=== PATIENT | male | born 1985 | race Asian ===

== ENCOUNTER 2021-10-30 19:18 | Emergency (ER) | payer OTHER ==
[~2021-10-30] VITALS: Ht 172.7 cm; Wt 127.3 kg
[2021-10-30 22:05] VITALS: BP 109/63
[2021-10-30] MEDS ORDERED: PERTUSS(ACELL),DIPH,TET VAC/PF 0.5 ML SYRINGE IM. ONE (22:15)
== END 2021-10-30 22:36 | disposition home or self-care (01) ==
LOC: EMS 20:26
DX: S30.871A Other superficial bite of abdominal wall, initial encounter (principal); S71.152A Open bite, left thigh, initial encounter; F12.90 Cannabis use, unspecified, uncomplicated; W54.0XXA Bitten by dog, initial encounter; Y93.89 Activity, other specified; Y92.89 Other specified places as the place of occurrence of the external cause; Y99.8 Other external cause status
CPT/HCPCS: 90471; 90715; 99283

== ENCOUNTER 2025-04-18 13:22 | Emergency (ER) | payer OTHER ==
[~2025-04-18] VITALS: Ht 172.7 cm; Wt 139.0 kg
[2025-04-18 13:37] VITALS: BP 94/66; PULSE 59; RESP 18; TEMP 97.9; O2SAT 97
[2025-04-18] MEDS ORDERED: IBUP-1492 PO (14:37)
[2025-04-18] MEDS: LIDOCAINE 5% TRANSDERMAL PATCH TD ONE (14:44)
[2025-04-18] MEDS: KETOROLAC TROMETHAMINE 60 MG/2 ML VIAL IM ONE (14:44)
== END 2025-04-18 14:57 | disposition home or self-care (01) ==
LOC: EMS 13:31
DX: S16.1XXA Strain of muscle, fascia and tendon at neck level, initial encounter (principal); F12.90 Cannabis use, unspecified, uncomplicated; X58.XXXA Exposure to other specified factors, initial encounter; Y93.89 Activity, other specified; Y92.89 Other specified places as the place of occurrence of the external cause; Y99.8 Other external cause status
CPT/HCPCS: 99283; 96372; J1885